=== PATIENT | male | born 1995 | race African-American/Black ===

== ENCOUNTER 2017-02-21 08:53 | Emergency (ER) | payer SELFPAY ==
[2017-02-21 08:59] VITALS: BP 136/71
--- NOTE | 2017-02-21 09:34 | ER Document Report ---
HPI - HPI Pain Level: 1 Context: 22 yo male c/o facial rash x 1 day. woke up with rash this morning. denies any contacts, meds. no difficulty breathing, talking or swallowing. Associated Symptoms: None Exacerbated by: Denies Relieved by: Denies Similar symptoms previously: No Recently seen / treated by doctor: No - ROS ROS below otherwise negative: Yes Past Medical History - General Information source: Patient - Social History Smoking Status: Never Smoker Chew tobacco use (# tins/day): No Frequency of alcohol use: Occasional Drug Abuse: None Family History: Reviewed & Not Pertinent Patient has suicidal ideation: No Patient has homicidal ideation: No - Medical History Medical History: Negative Renal/ Medical History: Denies: Hx Peritoneal Dialysis Past Surgical History: Reports: Hx Orthopedic Surgery Vertical Provider Document - CONSTITUTIONAL Agree With Documented VS: Yes Exam Limitations: No Limitations - INFECTION CONTROL TRAVEL OUTSIDE OF THE [place] IN LAST 30 DAYS: No - HEENT HEENT: Atraumatic, Normal ENT Exam, PERRLA. negative: Pharyngeal Tenderness, Pharyngeal Erythema - RESPIRATORY Respiratory: Breath Sounds Normal, No Respiratory Distress O2 Sat by Pulse Oximetry: 99 - CARDIOVASCULAR Cardiovascular: Regular Rate, Regular Rhythm - NEURO Level of Consciousness: Awake, Alert, Appropriate - DERM Integumentary: Warm, Dry, Rash - scattered papular rash around eyes, forehead and malar face. Course - Re-evaluation Re-evalutation: 02/21/17 09:36 no signs of anaphylactic reaction. low suspicion for prasad dwight's. - Vital Signs Vital signs: Temp Pulse Resp BP Pulse Ox 97.9 F 81 16 136/71 H 99 02/21/17 08:58 02/21/17 08:58 02/21/17 08:58 02/21/17 08:58 02/21/17 08:58 Discharge - Discharge Clinical Impression: Facial rash Condition: Stable Disposition: HOME, SELF-CARE Instructions: Steroid Medication, Topical Steroid Cream or Ointment ([facility]), Use of Diphenhydramine Additional Instructions: keep face moisturized take medications as prescribed return to ER for any worsening of status Prescriptions: Hydrocortisone [Hydrocortisone 0.5% Cream 28.35 Gm] 1 applic TP BID #30 g Prednisone [Deltasone 10 mg Tablet] 20 mg PO BID #16 tablet
== END 2017-02-21 09:45 | disposition home or self-care (01) ==
LOC: ER 08:53
DX: R21 Rash and other nonspecific skin eruption (principal)
CPT/HCPCS: 99282